=== PATIENT | female | born 1955 | race Caucasian/White ===

== ENCOUNTER 2016-06-08 10:16 | Observation (INO) | payer OTHER ==
[~2016-06-08] VITALS: Ht 160 cm; Wt 75.2 kg
[2016-06-08] VITALS (10 sets, daily range): BP systolic 104–188; BP diastolic 53–95
[~2016-06-08 10:16] MED LIST: ACIPHEX20 MG PO; AMITIZA24 MICROGR PO; ANAPROX DS550 M1 PO; ASPIRIN EC325 MG PO; ASPIRIN81 M2 PO; BACLOFEN10 MG PO; CARVEDILOL12.5 MG PO; CENTRUM ULTRA1 EAC1 PO; COREG25 M1 PO; COZAAR50 MG PO; CYCLOBENZAPRINE10 MG PO; CYMBALTA20 MG PO; DAILY VITAMIN1 EAC4 PO; DAILY VITAMIN1 EAC8 PO; DEXILANT60 MG PO; DILAUDID PO; DILAUDID2 MG PO; DILAUDID4 MG PO; DOMP10T PO; DOMPERIDONE PO; Domperidone; ERGOCALCIF50000 UNIT PO; FLAGYL500 MG PO; FLEXERIL10 MG PO; GABAPENTIN300 MG PO; GLYBURIDE5 MG PO; GRALISE600 MG PO; HUMALOG100 UNIT/2 SC; HUMALOG100 UNITS/ SQ; HYDROMORPHONE HC4 MG PO; KEFLEX500 MG PO; KLONOPIN0.5 M1 PO; LANTUS 3 M100 UNITS1 SC; LANTUS100 UNIT/1 SQ; LASIX40 MG PO; LASIX80 MG PO; LEVOTHROID300 MCG PO; LEVOTHYROXINE100 MCG PO; LEVOTHYROXINE150 MCG PO; LEVOXYL150 MCG PO; LEXAPRO10 MG PO; LIDODERM 5% P1 PATCH TD; LINZESS145 MCG PO; LIORESAL10 MG PO; LISINOPRIL2.5 MG PO; LISINOPRIL40 MG PO; LISINOPRIL5 MG PO; LITE COAT ASPI325 M1 PO; LOPRESSOR25 MG PO; LOPRESSOR50 MG PO; LYRICA75 MG PO; METOPROLOL TART25 MG PO; MIRALAX17 GM PO; MIRTAZAPINE15 MG PO; MISOPROSTOL200 MCG PO; MYSOLINE50 MG PO; NAPROSYN500 MG PO; NEURONTIN600 MG PO; NIFEDIPINE ER90 MG PO; NOVOLOG PE100 UNITS/ SC; NOVOLOG100 UNIT/1 SC; ONGLYZA5 MG PO; OPANA ER20 MG PO; OXYCONTIN10 MG PO; OXYMORPHONE HCL20 MG PO; PHENERGAN25 MG PR; PRAVACHOL40 MG PO; PRAVASTATIN SOD40 MG PO; PRED FORTE100 DROP/5 LEFT EYE; PREDNISOLONE ACETATE RIGHT EYE; PREDNISONE2.5 MG PO; PRIMIDONE50 MG PO; PROMETHAZINE HC25 M1 PO; ROBAXIN500 MG PO; SERTRALINE HCL25 MG PO; SOMA350 MG PO; TEMAZEPAM15 MG PO; TIROSINT150 MCG PO; TOPIRAMATE25 MG PO; TOPIRAMATE50 MG PO; TRAMADOL HCL50 MG PO; VALIUM5 MG PO; VITAMIN D PO; VITAMIN D250000 UNIT PO; Vancocin Oral Solution PO; ZESTRIL,PRINIVI20 MG PO; ZOFRAN ODT4 MG PO; ZOFRAN4 MG PO; ZOFRAN8 MG PO
[2016-06-08 11:30] LABS: BASOPHIL COUNT 0.1 K/uL (0-0.1); EOSINOPHIL (%) 0 % (0-5); HEMATOCRIT 41.2 % (36.0-46.0); IMMATURE GRANULOCYTE (%) 0.7 % (0.0-0.7); IMMATURE GRANULOCYTE COUNT 0.1 K/uL; INSTRUMENT ABS NEUTROPHIL CT 10.3 K/uL; LYMPHOCYTE COUNT 0.8 K/uL (1.0-2.8); MCH 28.9 PG (29.0-34.0); MCHC 33.5 G/DL (30.0-36.0); MCV 86.2 FL (83-99); MEAN PLAT.VOLUME 9.1 uM^3 (9.5-12.4); MONOCYTE (%) 2.6 % (3-12); MONOCYTE COUNT 0.3 K/uL (0-0.8); NEUTROPHIL (%) 89.4 % (45-76); NEUTROPHIL COUNT 10.3 K/uL (1.8-6.4); PLATELET COUNT 317 K/uL (156-360); RBC DIS.WIDTH-CV 13.9 % (11.8-14.6); RBC DIS.WIDTH-SD 43.9 % (39-53); RED BLOOD COUNT 4.78 M/uL (3.80-5.20); WHITE BLOOD COUNT 11.6 K/uL (4.1-10.2)
[2016-06-08 11:32] LABS: PROTHROMBIN TIME 10.4 (9.2-11.2)
[2016-06-08 11:34] LABS: CHLORIDE 108 mEq/L (99-109); POTASSIUM 3.8 mEq/L (3.7-5.4); SODIUM 141 mEq/L (136-147)
[2016-06-08 11:36] LABS: GLUCOSE 177 mg/dL (70-99)
[2016-06-08 11:37] LABS: ANION GAP 11 MEQ/L (2-14)
[2016-06-08 11:38] LABS: TOTAL BILIRUBIN 0.5 mg/dL (0.0-1.0)
[2016-06-08 11:40] LABS: ALKALINE PHOSPHATASE 68 IU/L (3-129); GFR ESTIMATE (CALCULATED) 54 mL/min/
[2016-06-08 11:41] LABS: UREA NITROGEN (BUN) 12 mg/dL (9-23)
[2016-06-08 11:43] LABS: LIPASE 24 U/L (1.0-51.0)
[2016-06-08 11:44] LABS: TROP-I INTERPRETATION NEGATIVE; TROPONIN-I < 0.01 ng/mL (0.0-0.30)
[2016-06-08] MEDS ORDERED: LEVOTHYROXINE112 MCG PO (13:34)
[2016-06-08] MEDS ORDERED: PREDNISONE1 MG PO (13:37)
[2016-06-08] MEDS ORDERED: DULOXETINE HCL60 MG PO (13:38)
[2016-06-08 15:49] LABS: TROP-I INTERPRETATION NEGATIVE; TROPONIN-I 0.01 ng/mL (0.0-0.30)
[2016-06-08 18:05] LABS: TROP-I INTERPRETATION NEGATIVE; TROPONIN-I 0.02 ng/mL (0.0-0.30)
[2016-06-09 01:53] LABS: TROP-I INTERPRETATION NEGATIVE; TROPONIN-I 0.01 ng/mL (0.0-0.30)
[2016-06-09 04:50] VITALS: BP 136/64
[2016-06-09 07:36] LABS: ANION GAP 9 MEQ/L (2-14); CHLORIDE 103 MEQ/L (99-109); GFR ESTIMATE (CALCULATED) 41 mL/min/; POTASSIUM 3.7 MEQ/L (3.7-5.4); SAMPLE HEMOLYSIS CHECK 0; SAMPLE ICTERIC CHECK 0; SAMPLE LIPEMIA CHECK 0; SODIUM 138 MEQ/L (136-147); UREA NITROGEN (BUN) 13 mg/dL (9-23)
[2016-06-09 07:41] LABS: GLUCOSE 108 mg/dL (70-99)
[2016-06-09 08:03] LABS: MCHC 31.8 G/DL (30.0-36.0); MEAN PLAT.VOLUME 9.4 uM^3 (9.5-12.4); PLATELET COUNT 327 K/uL (156-360); RBC DIS.WIDTH-CV 14.1 % (11.8-14.6); RBC DIS.WIDTH-SD 45.2 % (39-53); RED BLOOD COUNT 4.43 M/uL (3.80-5.20); WHITE BLOOD COUNT 12.7 K/uL (4.1-10.2)
[2016-06-09 08:25] VITALS: BP 147/74
[2016-06-09] MEDS ORDERED: IMDUR30 MG PO (08:25)
== END 2016-06-09 10:27 | disposition home or self-care (01) ==
LOC: EME 10:16 → EDOF 13:26 → 5WEST 14:56
PROVIDERS: Emergency Medicine; Hospitalist; Nurse Practitioner Family
DX: R07.2 Precordial pain (principal); I10 Essential (primary) hypertension; E78.5 Hyperlipidemia, unspecified; I25.10 Atherosclerotic heart disease of native coronary artery without angina pectoris; E03.9 Hypothyroidism, unspecified; F17.200 Nicotine dependence, unspecified, uncomplicated; F41.9 Anxiety disorder, unspecified; F32.9 Major depressive disorder, single episode, unspecified; Z66 Do not resuscitate; R73.9 Hyperglycemia, unspecified
CPT/HCPCS: 71010; 71275; 80048; 80053; 83605; 83690; 84484; 85025; 85027; 85610; 93005; 99281; 99285; G0378; J1644; J2270; J2405; J3010; S0028

== ENCOUNTER 2016-07-09 14:47 | Observation (INO) | payer OTHER ==
[~2016-07-09] VITALS: Ht 160 cm; Wt 74.8 kg
[~2016-07-09 14:47] MED LIST changes: +DULOXETINE HCL60 MG PO; +IMDUR30 MG PO; +LEVOTHYROXINE112 MCG PO; +PREDNISONE1 MG PO
[2016-07-09 15:31] LABS: BASOPHIL COUNT 0.1 K/uL (0-0.1); EOSINOPHIL (%) 1.4 % (0-5); EOSINOPHIL COUNT 0.2 K/uL (0-0.3); HEMATOCRIT 45.8 % (36.0-46.0); IMMATURE GRANULOCYTE (%) 0.6 % (0.0-0.7); IMMATURE GRANULOCYTE COUNT 0.1 K/uL; INSTRUMENT ABS NEUTROPHIL CT 9.4 K/uL; LYMPHOCYTE COUNT 2.1 K/uL (1.0-2.8); MCH 28.7 PG (29.0-34.0); MCHC 33.2 G/DL (30.0-36.0); MCV 86.6 FL (83-99); MEAN PLAT.VOLUME 9.1 uM^3 (9.5-12.4); MONOCYTE (%) 6.4 % (3-12); MONOCYTE COUNT 0.8 K/uL (0-0.8); NEUTROPHIL (%) 74.3 % (45-76); NEUTROPHIL COUNT 9.4 K/uL (1.8-6.4); PLATELET COUNT 356 K/uL (156-360); RBC DIS.WIDTH-CV 13.9 % (11.8-14.6); RBC DIS.WIDTH-SD 44.4 % (39-53); RED BLOOD COUNT 5.29 M/uL (3.80-5.20); WHITE BLOOD COUNT 12.6 K/uL (4.1-10.2)
[2016-07-09 15:40] LABS: CHLORIDE 100 mEq/L (99-109); POTASSIUM 3.7 mEq/L (3.7-5.4); SODIUM 139 mEq/L (136-147)
[2016-07-09 15:41] LABS: GLUCOSE 163 mg/dL (70-99); PROTHROMBIN TIME 10.2 (9.2-11.2)
[2016-07-09 15:43] LABS: ANION GAP 13 MEQ/L (2-14)
[2016-07-09 15:45] LABS: GFR ESTIMATE (CALCULATED) 38 mL/min/
[2016-07-09 15:46] LABS: UREA NITROGEN (BUN) 26 mg/dL (9-23)
[2016-07-09 15:51] LABS: TROP-I INTERPRETATION NEGATIVE; TROPONIN-I < 0.01 ng/mL (0.0-0.30)
[2016-07-09] MEDS ORDERED: PHENERGAN25 MG PR (16:54)
[2016-07-09] MEDS ORDERED: VITAMIN D2000 UNIT PO (16:57)
[2016-07-09] MEDS ORDERED: MIRALAX17 GM PO (16:57)
[2016-07-09] MEDS ORDERED: LINZESS145 MCG PO (16:57)
[2016-07-09 20:35] LABS: D-DIMER ELISA 0.56 mg/L FEU (< 0.57)
[2016-07-09 20:45] VITALS: BP 139/87
[2016-07-09 22:23] LABS: TROP-I INTERPRETATION NEGATIVE; TROPONIN-I < 0.01 ng/mL (0.0-0.30)
[2016-07-09 23:43] VITALS: BP 170/83
[2016-07-10 06:21] LABS: TROP-I INTERPRETATION NEGATIVE; TROPONIN-I < 0.01 ng/mL (0.0-0.30)
[2016-07-10 06:51] LABS: ALKALINE PHOSPHATASE 59 IU/L (3-129); ANION GAP 6 MEQ/L (2-14); CHLORIDE 100 MEQ/L (99-109); GFR ESTIMATE (CALCULATED) 41 mL/min/; GLUCOSE 155 mg/dL (70-99); SAMPLE HEMOLYSIS CHECK 0; SAMPLE ICTERIC CHECK 0; SAMPLE LIPEMIA CHECK 0; SODIUM 136 MEQ/L (136-147); TOTAL BILIRUBIN 0.3 MG/DL (0.0-1.0); UREA NITROGEN (BUN) 26 mg/dL (9-23)
[2016-07-10 07:09] LABS: HEMATOCRIT 37.9 % (36.0-46.0); MCH 28.9 PG (29.0-34.0); MCHC 32.7 G/DL (30.0-36.0); MCV 88.3 FL (83-99); MEAN PLAT.VOLUME 9.7 uM^3 (9.5-12.4); PLATELET COUNT 266 K/uL (156-360); RBC DIS.WIDTH-CV 13.9 % (11.8-14.6); RBC DIS.WIDTH-SD 45.1 % (39-53); RED BLOOD COUNT 4.29 M/uL (3.80-5.20); WHITE BLOOD COUNT 13.4 K/uL (4.1-10.2)
[2016-07-10 08:45] VITALS: BP 169/70
[2016-07-10] MEDS ORDERED: DECARA50000 UNIT PO (10:34)
[2016-07-10] MEDS ORDERED: AMLODIPINE BESYL5 MG PO (10:39)
== END 2016-07-10 13:33 | disposition home or self-care (01) ==
LOC: EME 14:47 → EDOF 19:18 → 5WEST 19:18
PROVIDERS: Emergency Medicine; Internal Medicine
DX: R07.89 Other chest pain (principal); N17.9 Acute kidney failure, unspecified; I25.10 Atherosclerotic heart disease of native coronary artery without angina pectoris; I10 Essential (primary) hypertension; E11.65 Type 2 diabetes mellitus with hyperglycemia; K21.9 Gastro-esophageal reflux disease without esophagitis; E78.5 Hyperlipidemia, unspecified; E03.9 Hypothyroidism, unspecified; I25.2 Old myocardial infarction; F17.200 Nicotine dependence, unspecified, uncomplicated; Z66 Do not resuscitate; F41.9 Anxiety disorder, unspecified; E66.9 Obesity, unspecified; I35.0 Nonrheumatic aortic (valve) stenosis; K31.84 Gastroparesis
CPT/HCPCS: 71020; 80048; 80053; 81003; 84484; 85025; 85027; 85379; 85610; 85730; 93005; 99281; 99285; G0378; J1644; J7030

== ENCOUNTER 2016-11-22 07:25 | Day surgery (SDC) | payer OTHER ==
[~2016-11-22] VITALS: Ht 160 cm; Wt 72.6 kg
[~2016-11-22 07:25] MED LIST changes: +AMLODIPINE BESYL5 MG PO; +DECARA50000 UNIT PO; +FLEXERIL5 MG PO; +LEVOTHYROXINE137 MCG PO; +VITAMIN D2000 UNIT PO
[2016-11-22 08:08] VITALS: BP 143/70
[2016-11-22 11:35] LABS: POINT-OF-CARE METER ID UU13113675
[2016-11-22 12:30] VITALS: BP 123/58
[2016-11-22 13:20] VITALS: BP 120/58
== END 2016-11-22 13:30 | disposition home or self-care (01) ==
LOC: SDC 07:25
PROVIDERS: Ophthalmology
DX: H33.42 Traction detachment of retina, left eye (principal); H35.372 Puckering of macula, left eye; E11.3532 Type 2 diabetes mellitus with proliferative diabetic retinopathy with traction retinal detachment not involving the macula, left eye; I10 Essential (primary) hypertension; K21.9 Gastro-esophageal reflux disease without esophagitis; E03.9 Hypothyroidism, unspecified; R00.1 Bradycardia, unspecified; Z86.73 Personal history of transient ischemic attack (TIA), and cerebral infarction without residual deficits; F17.210 Nicotine dependence, cigarettes, uncomplicated; Z79.82 Long term (current) use of aspirin
CPT/HCPCS: 82948; J0330; J0690; J0713; J2250; J2405; J3010; J3300

== ENCOUNTER 2017-01-24 08:10 | Day surgery (SDC) | payer OTHER ==
[~2017-01-24] VITALS: Ht 160 cm; Wt 72.6 kg
[~2017-01-24 08:10] MED LIST changes: +ATORVASTATIN CA80 MG PO; +CLOPIDOGREL75 MG PO; +ZANTAC150 MG PO
[2017-01-24 08:57] VITALS: BP 137/65
[2017-01-24 11:47] LABS: POINT-OF-CARE METER ID UU13113675
[2017-01-24 12:05] VITALS: BP 127/60
[2017-01-24 13:05] VITALS: BP 126/60
== END 2017-01-24 13:30 | disposition home or self-care (01) ==
LOC: SDC 08:10
PROVIDERS: Ophthalmology
DX: H35.342 Macular cyst, hole, or pseudohole, left eye (principal); E11.9 Type 2 diabetes mellitus without complications; E03.9 Hypothyroidism, unspecified; E78.5 Hyperlipidemia, unspecified; I25.2 Old myocardial infarction; I10 Essential (primary) hypertension; K21.9 Gastro-esophageal reflux disease without esophagitis; Z86.73 Personal history of transient ischemic attack (TIA), and cerebral infarction without residual deficits; Z79.82 Long term (current) use of aspirin; F17.200 Nicotine dependence, unspecified, uncomplicated
CPT/HCPCS: 82948; J0131; J0690; J0713; J1100; J2405; J3010; J3300

== ENCOUNTER 2017-08-07 12:45 | Observation (INO) | payer OTHER ==
[~2017-08-07] VITALS: Ht 160 cm; Wt 81.5 kg
[~2017-08-07 12:45] MED LIST changes: -LEVOTHYROXINE137 MCG PO; +LEVOTHYROXINE175 MCG PO
[2017-08-07 13:32] LABS: HEMATOCRIT 36.2 % (36.0-46.0); HEMOGLOBIN 12.4 G/DL (11.9-15.5); MCH 29.2 PG (29.0-34.0); MCHC 34.3 G/DL (30.0-36.0); MCV 85.4 FL (83-99); PLATELET COUNT 289 K/uL (156-360); RBC DIS.WIDTH-SD 46.5 % (39-53); RED BLOOD COUNT 4.24 M/uL (3.80-5.20); WHITE BLOOD COUNT 11.8 K/uL (4.1-10.2)
[2017-08-07 13:40] LABS: CHLORIDE 108 mEq/L (99-109); POTASSIUM 3.7 mEq/L (3.7-5.4); SODIUM 137 mEq/L (136-147)
[2017-08-07 13:42] LABS: GLUCOSE 165 mg/dL (70-99)
[2017-08-07 13:46] LABS: CREATININE 2.1 mg/dL (0.6-1.3); GFR ESTIMATE (CALCULATED) 26 mL/min/; UREA NITROGEN (BUN) 27 mg/dL (9-23)
[2017-08-07 13:53] LABS: TROP-I INTERPRETATION NEGATIVE; TROPONIN-I 0.03 ng/mL (0.0-0.30)
[2017-08-07 14:52] LABS: LIPASE 72 U/L (1.0-51.0)
[2017-08-07] MEDS ORDERED: CLOPIDOGREL75 MG PO (15:25)
[2017-08-07] MEDS ORDERED: ATORVASTATIN CA80 MG PO (15:25)
[2017-08-07] MEDS ORDERED: GAVISCON ES CH1 EACH PO (15:30)
[2017-08-07] MEDS ORDERED: ESCITALOPRAM OX20 MG PO (15:32)
[2017-08-07] MEDS ORDERED: MORPHINE SULFAT15 M1 PO (15:32)
[2017-08-07] MEDS ORDERED: ADVIL200 MG PO (15:33)
[2017-08-07 17:01] VITALS: BP 160/69
[2017-08-07 17:09] LABS: HDL CHOLESTEROL 59 MG/DL (Desirable>=50); LDL CHOLESTEROL 234 mg/dL (Desirable<100); NON-HDL CHOLESTEROL 303 mg/dL (Desirable<160); TOTAL CHOLESTEROL 362 mg/dL (Desirable<200); TRIGLYCERIDES 347 MG/DL (Normal: <150)
[2017-08-07 18:38] VITALS: BP 155/73
[2017-08-08 00:15] VITALS: BP 144/71
[2017-08-08 00:59] LABS: TROP-I INTERPRETATION NEGATIVE; TROPONIN-I 0.02 ng/mL (0.0-0.30)
[2017-08-08 04:02] VITALS: BP 155/70
[2017-08-08 05:34] LABS: HEMATOCRIT 37.1 % (36.0-46.0); HEMOGLOBIN 11.9 G/DL (11.9-15.5); MCH 27.9 PG (29.0-34.0); MCHC 32.1 G/DL (30.0-36.0); MCV 86.9 FL (83-99); PLATELET COUNT 271 K/uL (156-360); RBC DIS.WIDTH-SD 47.8 % (39-53); RED BLOOD COUNT 4.27 M/uL (3.80-5.20); WHITE BLOOD COUNT 12.7 K/uL (4.1-10.2)
[2017-08-08 05:50] LABS: TROP-I INTERPRETATION NEGATIVE; TROPONIN-I 0.02 ng/mL (0.0-0.30)
[2017-08-08 06:01] LABS: CHLORIDE 108 MEQ/L (99-109); CREATININE 2.1 MG/DL (0.6-1.3); GFR ESTIMATE (CALCULATED) 26 mL/min/; POTASSIUM 4.1 MEQ/L (3.7-5.4); SODIUM 135 MEQ/L (136-147); UREA NITROGEN (BUN) 27 mg/dL (9-23)
[2017-08-08 06:15] LABS: GLUCOSE 88 mg/dL (70-99)
[2017-08-08 07:25] VITALS: BP 191/84
[2017-08-08 12:18] VITALS: BP 179/75
[2017-08-08 12:57] LABS: HEMOGLOBIN A1c (GLYCOHEMOGLOB) 5.7 % (Below 5.7)
== END 2017-08-08 14:44 | disposition home or self-care (01) ==
LOC: EME 12:45 → EDOF 15:35 → 4SOUTH 15:35 → EDOF 15:35 → ENRESERV 15:46 → 4SOUTH 16:43
PROVIDERS: Emergency Medicine; Hospitalist
DX: R07.89 Other chest pain (principal); M79.602 Pain in left arm; E03.9 Hypothyroidism, unspecified; I10 Essential (primary) hypertension; Z86.73 Personal history of transient ischemic attack (TIA), and cerebral infarction without residual deficits; I25.2 Old myocardial infarction; I51.81 Takotsubo syndrome; I25.10 Atherosclerotic heart disease of native coronary artery without angina pectoris; E78.5 Hyperlipidemia, unspecified; Z79.82 Long term (current) use of aspirin; F17.210 Nicotine dependence, cigarettes, uncomplicated; Z90.49 Acquired absence of other specified parts of digestive tract; Z90.710 Acquired absence of both cervix and uterus; Z82.49 Family history of ischemic heart disease and other diseases of the circulatory system; Z83.3 Family history of diabetes mellitus
CPT/HCPCS: 71045; 80048; 80061; 83036; 83690; 84484; 85027; 93005; 99281; 99285; G0378; J1644; S0028

== ENCOUNTER 2017-10-20 20:32 | Inpatient (IN) | payer OTHER ==
[~2017-10-20] VITALS: Ht 160 cm; Wt 82.6 kg
[~2017-10-20 20:32] MED LIST changes: +ADVIL200 MG PO; +ESCITALOPRAM OX20 MG PO; +GAVISCON ES CH1 EACH PO; +MORPHINE SULFAT15 M1 PO
[2017-10-20 21:59] LABS: BASOPHIL (%) 0.7 % (0-1); BASOPHIL COUNT 0.1 K/uL (0-0.1); EOSINOPHIL (%) 3.6 % (0-5); EOSINOPHIL COUNT 0.5 K/uL (0-0.3); HEMATOCRIT 38.1 % (36.0-46.0); HEMOGLOBIN 12.3 G/DL (11.9-15.5); IMMATURE GRANULOCYTE (%) 0.5 % (0.0-0.7); LYMPHOCYTE (%) 8.5 % (15-42); LYMPHOCYTE COUNT 1.1 K/uL (1.0-2.8); MCH 28.6 PG (29.0-34.0); MCHC 32.3 G/DL (30.0-36.0); MCV 88.6 FL (83-99); NEUTROPHIL (%) 78.7 % (45-76); NEUTROPHIL COUNT 9.8 K/uL (1.8-6.4); PLATELET COUNT 258 K/uL (156-360); RBC DIS.WIDTH-CV 14.9 % (11.8-14.6); RBC DIS.WIDTH-SD 48.2 % (39-53); WHITE BLOOD COUNT 12.5 K/uL (4.1-10.2)
[2017-10-20 22:18] LABS: CHLORIDE 105 mEq/L (99-109); POTASSIUM 5.2 mEq/L (3.7-5.4); SODIUM 136 mEq/L (136-147)
[2017-10-20 22:20] LABS: GLUCOSE 108 mg/dL (70-99)
[2017-10-20 22:24] LABS: CREATININE 3.1 mg/dL (0.6-1.3); GFR ESTIMATE (CALCULATED) 16 mL/min/; UREA NITROGEN (BUN) 28 mg/dL (9-23)
[2017-10-20 22:28] LABS: TROP-I INTERPRETATION NEGATIVE; TROPONIN-I < 0.01 ng/mL (0.0-0.30)
[2017-10-20 23:22] LABS: APPEARANCE CLEAR ((CLEAR)); BILIRUBIN NEGATIVE; BLOOD SMALL; COLOR YELLOW ((YELLOW)); GLUCOSE (STRIP) 50; KETONES NEGATIVE; LEUKOCYTES TRACE; NITRITE NEGATIVE; PROTEIN (STRIP) >=500; SPECIFIC GRAVITY 1.011 (1.000-1.030); UROBILINOGEN 0.2 MG/DL (0.2-1.0)
[2017-10-20 23:32] LABS: BACTERIA NONE SEEN /HPF; EPITHELIAL CELLS RARE /HPF; HYALINE CASTS 0-5 /LPF; MUCUS TRACE /LPF; RED BLOOD CELLS 0-5 /HPF (0-5); WHITE BLOOD CELLS 20-30 /HPF (0-5)
[2017-10-21] VITALS (7 sets, daily range): BP systolic 123–184; BP diastolic 61–103
[2017-10-21] MEDS ORDERED: PROMETHAZINE HC25 M1 PO (01:03)
[2017-10-21] MEDS ORDERED: DUREZOL 0.100 DROP/5 RIGHT EYE (01:04)
[2017-10-21] MEDS ORDERED: LEVOTHYROXINE137 MCG PO (01:05)
[2017-10-21] MEDS ORDERED: ILEVRO1.7 ML RIGHT EYE (01:05)
[2017-10-21] MEDS ORDERED: BUPROPION XL150 MG PO (01:06)
[2017-10-21] MEDS ORDERED: HYDROMORPHONE HC4 MG PO (01:07)
[2017-10-22 00:02] VITALS: BP 137/65
[2017-10-22 06:46] LABS: HEMATOCRIT 34.1 % (36.0-46.0); HEMOGLOBIN 10.9 G/DL (11.9-15.5); MCH 28.7 PG (29.0-34.0); MCV 89.7 FL (83-99); PLATELET COUNT 240 K/uL (156-360); RBC DIS.WIDTH-CV 14.6 % (11.8-14.6); RBC DIS.WIDTH-SD 47.8 % (39-53); WHITE BLOOD COUNT 9.1 K/uL (4.1-10.2)
[2017-10-22 07:01] LABS: CHLORIDE 109 MEQ/L (99-109); GFR ESTIMATE (CALCULATED) 17 mL/min/; GLUCOSE 108 mg/dL (70-99); POTASSIUM 5.5 MEQ/L (3.7-5.4); SODIUM 137 MEQ/L (136-147); UREA NITROGEN (BUN) 32 mg/dL (9-23)
[2017-10-22 09:02] VITALS: BP 151/70
[2017-10-22 12:17] VITALS: BP 168/73
[2017-10-22 13:25] LABS: UR CREATININE CONCENTRATION 43.6 MG/DL
[2017-10-22 16:51] VITALS: BP 143/65
[2017-10-22 23:44] VITALS: BP 123/76
[2017-10-23 07:58] VITALS: BP 141/95
[2017-10-23 08:26] LABS: BASOPHIL (%) 0.9 % (0-1); BASOPHIL COUNT 0.1 K/uL (0-0.1); EOSINOPHIL (%) 4.6 % (0-5); EOSINOPHIL COUNT 0.4 K/uL (0-0.3); HEMATOCRIT 37.3 % (36.0-46.0); HEMOGLOBIN 12.2 G/DL (11.9-15.5); IMMATURE GRANULOCYTE (%) 0.6 % (0.0-0.7); LYMPHOCYTE (%) 14.7 % (15-42); LYMPHOCYTE COUNT 1.3 K/uL (1.0-2.8); MCH 29.5 PG (29.0-34.0); MCHC 32.7 G/DL (30.0-36.0); MCV 90.1 FL (83-99); MONOCYTE (%) 7.6 % (3-12); MONOCYTE COUNT 0.7 K/uL (0-0.8); NEUTROPHIL (%) 71.6 % (45-76); NEUTROPHIL COUNT 6.2 K/uL (1.8-6.4); PLATELET COUNT 262 K/uL (156-360); RBC DIS.WIDTH-CV 14.6 % (11.8-14.6); RBC DIS.WIDTH-SD 48.5 % (39-53); RED BLOOD COUNT 4.14 M/uL (3.80-5.20); WHITE BLOOD COUNT 8.7 K/uL (4.1-10.2)
[2017-10-23 08:58] LABS: ALBUMIN 3.9 G/DL (3.2-4.8); ALKALINE PHOSPHATASE 137 IU/L (3-129); ALT (GPT) 9 IU/L (3-49); AST (GOT) 15 IU/L (2-34); CHLORIDE 108 MEQ/L (99-109); CREATININE 2.7 MG/DL (0.6-1.3); GFR ESTIMATE (CALCULATED) 19 mL/min/; GLUCOSE 121 mg/dL (70-99); MAGNESIUM 2.3 mg/dl (1.3-2.7); POTASSIUM 4.6 MEQ/L (3.7-5.4); SODIUM 139 MEQ/L (136-147); TOTAL BILIRUBIN 0.3 MG/DL (0.0-1.0); TOTAL PROTEIN 6.1 G/DL (6.4-8.3); UREA NITROGEN (BUN) 31 mg/dL (9-23); URIC ACID 4.5 mg/dL (3.1-9.2)
[2017-10-23 15:50] VITALS: BP 145/89
[2017-10-23 22:30] VITALS: BP 154/67
[2017-10-24 06:12] LABS: BASOPHIL (%) 1.1 % (0-1); BASOPHIL COUNT 0.1 K/uL (0-0.1); EOSINOPHIL (%) 5.9 % (0-5); EOSINOPHIL COUNT 0.4 K/uL (0-0.3); HEMATOCRIT 33.1 % (36.0-46.0); HEMOGLOBIN 10.7 G/DL (11.9-15.5); IMMATURE GRANULOCYTE (%) 0.1 % (0.0-0.7); LYMPHOCYTE (%) 22.7 % (15-42); LYMPHOCYTE COUNT 1.7 K/uL (1.0-2.8); MCH 28.7 PG (29.0-34.0); MCHC 32.3 G/DL (30.0-36.0); MCV 88.7 FL (83-99); MONOCYTE (%) 8.6 % (3-12); MONOCYTE COUNT 0.6 K/uL (0-0.8); NEUTROPHIL (%) 61.6 % (45-76); NEUTROPHIL COUNT 4.6 K/uL (1.8-6.4); PLATELET COUNT 231 K/uL (156-360); RBC DIS.WIDTH-CV 14.5 % (11.8-14.6); RBC DIS.WIDTH-SD 46.9 % (39-53); RED BLOOD COUNT 3.73 M/uL (3.80-5.20); WHITE BLOOD COUNT 7.4 K/uL (4.1-10.2)
[2017-10-24 06:32] LABS: CHLORIDE 113 MEQ/L (99-109); CREATININE 2.7 MG/DL (0.6-1.3); GFR ESTIMATE (CALCULATED) 19 mL/min/; GLUCOSE 125 mg/dL (70-99); SODIUM 141 MEQ/L (136-147); UREA NITROGEN (BUN) 27 mg/dL (9-23)
[2017-10-24 07:58] VITALS: BP 182/73
[2017-10-24 16:32] VITALS: BP 175/78
[2017-10-24 23:19] VITALS: BP 169/71
[2017-10-25 06:29] LABS: BASOPHIL (%) 1.5 % (0-1); BASOPHIL COUNT 0.1 K/uL (0-0.1); EOSINOPHIL (%) 5.6 % (0-5); EOSINOPHIL COUNT 0.4 K/uL (0-0.3); HEMATOCRIT 32.6 % (36.0-46.0); HEMOGLOBIN 10.6 G/DL (11.9-15.5); IMMATURE GRANULOCYTE (%) 0.1 % (0.0-0.7); LYMPHOCYTE (%) 23.4 % (15-42); LYMPHOCYTE COUNT 1.7 K/uL (1.0-2.8); MCH 28.6 PG (29.0-34.0); MCHC 32.5 G/DL (30.0-36.0); MCV 88.1 FL (83-99); MONOCYTE (%) 8.5 % (3-12); MONOCYTE COUNT 0.6 K/uL (0-0.8); NEUTROPHIL (%) 60.9 % (45-76); NEUTROPHIL COUNT 4.5 K/uL (1.8-6.4); PLATELET COUNT 234 K/uL (156-360); RBC DIS.WIDTH-CV 14.4 % (11.8-14.6); RBC DIS.WIDTH-SD 46.1 % (39-53); WHITE BLOOD COUNT 7.5 K/uL (4.1-10.2)
[2017-10-25 06:57] LABS: CHLORIDE 111 MEQ/L (99-109); CREATININE 2.5 MG/DL (0.6-1.3); GFR ESTIMATE (CALCULATED) 21 mL/min/; POTASSIUM 4.5 MEQ/L (3.7-5.4); SODIUM 141 MEQ/L (136-147); UREA NITROGEN (BUN) 23 mg/dL (9-23)
[2017-10-25 07:11] LABS: GLUCOSE 84 mg/dL (70-99)
[2017-10-25 07:30] VITALS: BP 180/85
[2017-10-25 14:35] VITALS: BP 162/70
[2017-10-25] MEDS ORDERED: LOPRESSOR50 MG PO (15:00)
[2017-10-25] MEDS ORDERED: DILAUDID4 MG PO (15:00)
[2017-10-25] MEDS ORDERED: NIFEDIPINE ER60 MG PO (15:00)
[2017-10-25] MEDS ORDERED: MORPHINE SULFAT15 M1 PO (15:00)
[2017-10-25 21:20] LABS: Neutrophil Cytoplasmic Aby Negative
== END 2017-10-25 15:37 | disposition home or self-care (01) | DRG 683 ==
LOC: EME 20:32 → ENRESERV 10-21 00:32 → 5EAST 10-21 00:32 → EDOF 10-21 00:32 → 5EAST 10-21 02:07
PROVIDERS: Internal Medicine; Internal Medicine Nephrology; Nurse Practitioner Family; Physician Assistant
DX: N17.9 Acute kidney failure, unspecified (principal); E86.0 Dehydration; T39.395A Adverse effect of other nonsteroidal anti-inflammatory drugs [NSAID], initial encounter; E87.5 Hyperkalemia; N39.0 Urinary tract infection, site not specified; I95.9 Hypotension, unspecified; M79.81 Nontraumatic hematoma of soft tissue; I12.9 Hypertensive chronic kidney disease with stage 1 through stage 4 chronic kidney disease, or unspecified chronic kidney disease; E11.22 Type 2 diabetes mellitus with diabetic chronic kidney disease; N18.4 Chronic kidney disease, stage 4 (severe); E11.43 Type 2 diabetes mellitus with diabetic autonomic (poly)neuropathy; K31.84 Gastroparesis; Z91.14 Patient's other noncompliance with medication regimen; R00.0 Tachycardia, unspecified; R25.1 Tremor, unspecified; N04.9 Nephrotic syndrome with unspecified morphologic changes; K21.9 Gastro-esophageal reflux disease without esophagitis; K22.70 Barrett's esophagus without dysplasia; I25.10 Atherosclerotic heart disease of native coronary artery without angina pectoris; E03.9 Hypothyroidism, unspecified; E78.5 Hyperlipidemia, unspecified; I25.2 Old myocardial infarction; G89.29 Other chronic pain; M54.9 Dorsalgia, unspecified; F17.210 Nicotine dependence, cigarettes, uncomplicated; Z79.4 Long term (current) use of insulin; Z79.891 Long term (current) use of opiate analgesic; Z86.73 Personal history of transient ischemic attack (TIA), and cerebral infarction without residual deficits
CPT/HCPCS: 71046; 76770; 80048; 80053; 81003; 82570; 82948; 83605; 83735; 84156; 84484; 84550; 85025; 85027; 86021 90; 87086; 89190; 93005; 99281; 99285; J0360; J0696; J1644; J1815; J7030; Q0169